=== PATIENT | female | born 2000 | race Hispanic/Latino ===

== ENCOUNTER 2020-01-05 06:09 | Emergency (ER) | payer OTHER ==
[2020-01-05] MEDS ORDERED: KETOROLAC 30 MG/ML INJ ONE (06:58)
--- NOTE | 2020-01-05 07:33 | ER ---
Nurse's Notes [facility] Name: Bhavana Washington Age: 19 yrs Sex: Female : 2000 Arrival Date: 01/05/2020 Time: 06:10 Bed 19 Private MD: Diagnosis: Radiculopathy, cervical region Presentation: 01/04 06:18 Chief complaint: Patient states: sudden left arm pain started this morning when I woke rr5 up. denies any trauma. Coronavirus screen: Client denies travel out of the [place] in the last 14 days. At this time, the client does not indicate any symptoms associated with coronavirus-19. Ebola Screen: Patient negative for fever greater than or equal to 101.5 degrees Fahrenheit, and additional compatible Ebola Virus Disease symptoms Patient denies exposure to infectious person. Patient denies travel to an Ebola-affected area in the 21 days before illness onset. Initial Sepsis Screen: Does the patient meet any 2 criteria? No. Patient's initial sepsis screen is negative. Does the patient have a suspected source of infection? No. Patient's initial sepsis screen is negative. Risk Assessment: Do you want to hurt yourself or someone else? Patient reports no desire to harm self or others. Onset of symptoms was January 05, 2020. 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 - Social history:: Smoking status: unknown Patient/guardian denies using alcohol, street drugs, tobacco products. Screenin:21 Abuse screen: Denies threats or abuse. Denies injuries from another. Nutritional rr5 screening: No deficits noted. Tuberculosis screening: No symptoms or risk factors identified. Fall Risk None identified. Total Gonzalez Fall Scale indicates No Risk (0-24 pts). Assessment: 06:18 General: Appears in no apparent distress. uncomfortable, Behavior is calm, cooperative, rr5 appropriate for age. Pain: Complains of pain in left arm Pain radiates to left arm Pain currently is 10 out of 10 on a pain scale. Quality of pain is described as aching, Pain began suddenly, Is continuous. Neuro: Level of Consciousness is awake, alert, obeys commands, Oriented to person, place, time, situation. Cardiovascular: Capillary refill < 3 seconds Patient's skin is warm and dry. Respiratory: Airway is patent Respiratory effort is even, unlabored, Respiratory pattern is regular, symmetrical. GI: No signs and/or symptoms were reported involving the gastrointestinal system. : No signs and/or symptoms were reported regarding the genitourinary system. EENT: No signs and/or symptoms were reported regarding the EENT system. Derm: Skin is intact, is healthy with good turgor, Skin temperature is warm. Musculoskeletal: Capillary refill Reports pain in left arm. 07:00 Reassessment: Patient and/or family updated on plan of care and expected duration. Pain mt2 level reassessed. Patient is alert, oriented x 3, equal unlabored respirations, skin warm/dry/pink. General: Appears in no apparent distress. Pain: Complains of pain in left arm Pain currently is 9 out of 10 on a pain scale. 07:32 Reassessment: Patient and/or family updated on plan of care and expected duration. Pain jr10 level reassessed. Patient is alert, oriented x 3, equal unlabored respirations, skin warm/dry/pink. Patient states feeling better. Patient states symptoms have improved. Vital Signs: 06:18 BP 124 / 80; Pulse 75; Resp 17; Temp 97.9; Pulse Ox 99% ; Weight 68.04 kg; Height 5 ft. rr5 4 in. (162.56 cm); Pain 10/10; 07:00 BP 121 / 61; Pulse 71; Resp 16; Pulse Ox 97% ; Pain 8/10; mt2 07:54 BP 103 / 77; Pulse 86; Resp 20; Pulse Ox 100% on R/A; Pain 0/10; jr10 06:18 Body Mass Index 25.75 (68.04 kg, 162.56 cm) rr5 ED Course: 06:11 Patient arrived in ED. cl3 06:20 Triage completed. rr5 06:20 Arm band placed on right wrist. rr5 06:21 Patient has correct armband on for positive identification. Bed in low position. Call rr5 light in reach. 06:28 Nad[facility] Vu[facility]-C [facility] snw 06:28 Jesus Lozada MD is Attending Physician. snw 06:28 Lucero Gibbs, RN is Primary Nurse. mt2 07:30 Eliana Rose, RN is Primary Nurse. jr10 07:55 No provider procedures requiring assistance completed. Patient did not have IV access jr10 during this emergency room visit. Administered Medications: 06:52 Drug: TORadol 60 mg Route: IM; Site: right gluteus; mt2 07:11 Follow up: Response: No adverse reaction mt2 07:31 Follow up: Response: No adverse reaction; Pain is decreased jr10 Outcome: 07:32 Discharge ordered by . snw 07:54 Discharged to home ambulatory. jr10 07:54 Condition: good 07:54 Discharge instructions given to patient, Instructed on discharge instructions, follow up and referral plans. Demonstrated understanding of instructions, follow-up care, medications, Prescriptions given X 2. 07:55 Patient left the ED. jr10 Signatures: Nadia Vuong FNP-C APPLICATION DEFENSE MANAGER-Csnw Cj Mccann, RN RN rr5 Mayuri Samuel cl3 Lucero Gibbs, RN RN mt2 Eliana Rose, RN RN jr10
--- NOTE | 2020-01-05 07:33 | EDPHYS ---
Physician Documentation [facility] Name: Bhavana Washington Age: 19 yrs Sex: Female : 2000 Arrival Date: 01/05/2020 Time: 06:10 Bed 19 Private MD: ED Physician Jesus Lozada HPI: 01/04 07:31 This 19 yrs old Female presents to ER via Ambulatory with complaints of Arm snw Problem. 07:31 The patient or guardian complains of pain, that is acute. The complaints affect the snw left tricep. Context: The problem was sustained at home, resulted from unknown cause. Onset: The symptoms/episode began/occurred on awakening. Associated signs and symptoms: The patient has no apparent associated signs or symptoms. Severity of symptoms: At their worst the symptoms were moderate. The patient has not experienced similar symptoms in the past. It is unknown whether or not the patient has recently seen a physician. last menses began 3 days ago. 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 - Social history:: Smoking status: unknown Patient/guardian denies using alcohol, street drugs, tobacco products. ROS: 07:30 Constitutional: Negative for fever, chills, and weight loss, Eyes: Negative for injury, snw pain, redness, and discharge, ENT: Negative for injury, pain, and discharge, Neck: Negative for injury, pain, and swelling, Cardiovascular: Negative for chest pain, palpitations, and edema, Respiratory: Negative for shortness of breath, cough, wheezing, and pleuritic chest pain, Abdomen/GI: Negative for abdominal pain, nausea, vomiting, diarrhea, and constipation, Back: Negative for injury and pain, : Negative for injury, bleeding, discharge, and swelling, Skin: Negative for injury, rash, and discoloration, Neuro: Negative for headache, weakness, numbness, tingling, and seizure, Psych: Negative for depression, anxiety, suicide ideation, homicidal ideation, and hallucinations. 07:30 MS/extremity: Positive for pain, of the left tricep. Exam: 07:29 Constitutional: This is a well developed, well nourished patient who is awake, alert, snw and in no acute distress. Head/Face: Normocephalic, atraumatic. Eyes: Pupils equal round and reactive to light, extra-ocular motions intact. Lids and lashes normal. Conjunctiva and sclera are non-icteric and not injected. Cornea within normal limits. Periorbital areas with no swelling, redness, or edema. ENT: Nares patent. No nasal discharge, no septal abnormalities noted. Tympanic membranes are normal and external auditory canals are clear. Oropharynx with no redness, swelling, or masses, exudates, or evidence of obstruction, uvula midline. Mucous membranes moist. Neck: Trachea midline, no thyromegaly or masses palpated, and no cervical lymphadenopathy. Supple, full range of motion without nuchal rigidity, or vertebral point tenderness. No Meningismus. + pain on awakening to left posterior upper arm Chest/axilla: Normal chest wall appearance and motion. Nontender with no deformity. No lesions are appreciated. Cardiovascular: Regular rate and rhythm with a normal S1 and S2. No gallops, murmurs, or rubs. Normal PMI, no JVD. No pulse deficits. Respiratory: Lungs have equal breath sounds bilaterally, clear to auscultation and percussion. No rales, rhonchi or wheezes noted. No increased work of breathing, no retractions or nasal flaring. Abdomen/GI: Soft, non-tender, with normal bowel sounds. No distension or tympany. No guarding or rebound. No evidence of tenderness throughout. Back: No spinal tenderness. No costovertebral tenderness. Full range of motion. Skin: Warm, dry with normal turgor. Normal color with no rashes, no lesions, and no evidence of cellulitis. Neuro: Awake and alert, GCS 15, oriented to person, place, time, and situation. Cranial nerves II-XII grossly intact. Motor strength 5/5 in all extremities. Sensory grossly intact. Cerebellar exam normal. Normal gait. Psych: Awake, alert, with orientation to person, place and time. Behavior, mood, and affect are within normal limits. 07:29 Musculoskeletal/extremity: Extremities: grossly normal except: noted in the left arm: tenderness, ROM: no acute changes, Circulation is intact in all extremities. Sensation intact. Vital Signs: 06:18 BP 124 / 80; Pulse 75; Resp 17; Temp 97.9; Pulse Ox 99% ; Weight 68.04 kg; Height 5 ft. rr5 4 in. (162.56 cm); Pain 10/10; 07:00 BP 121 / 61; Pulse 71; Resp 16; Pulse Ox 97% ; Pain 8/10; mt2 07:54 BP 103 / 77; Pulse 86; Resp 20; Pulse Ox 100% on R/A; Pain 0/10; jr10 06:18 Body Mass Index 25.75 (68.04 kg, 162.56 cm) rr5 MDM: 06:28 Patient medically screened. snw 07:33 Data reviewed: vital signs, nurses notes. Data interpreted: Pulse oximetry: on room air snw is 97 %. Interpretation: normal. Counseling: I had a detailed discussion with the patient and/or guardian regarding: the historical points, exam findings, and any diagnostic results supporting the discharge/admit diagnosis, the need for outpatient follow up, to return to the emergency department if symptoms worsen or persist or if there are any questions or concerns that arise at home. Special discussion: Based on the history and exam findings, there is no indication for further emergent testing or inpatient evaluation. I discussed with the patient/guardian the need to see the primary care provider for further evaluation of the symptoms. Administered Medications: 06:52 Drug: TORadol 60 mg Route: IM; Site: right gluteus; mt2 07:11 Follow up: Response: No adverse reaction mt2 07:31 Follow up: Response: No adverse reaction; Pain is decreased jr10 Disposition: 08:36 Co-signature as Attending Physician, Jesus Lozada MD I agree with the assessment and tw4 plan of care. Disposition: 01/05/20 07:32 Discharged to Home. Impression: Radiculopathy, cervical region. - Condition is Stable. - Discharge Instructions: Cervical Radiculopathy, Heat Therapy, Radicular Pain. - Prescriptions for Diclofenac Sodium 75 mg Oral Tablet Sustained Release - take 1 tablet by ORAL route 2 times per day; 30 tablet. orphenadrine citrate 100 mg Oral Tablet Sustained Release - take 1 tablet by ORAL route 2 times per day As needed; 20 tablet. - Medication Reconciliation Form, Thank You Letter, Antibiotic Education, Prescription Opioid Use form. - Follow up: Emergency Department; When: As needed; Reason: Worsening of condition. Follow up: Private Physician; When: 2 - 3 days; Reason: Recheck today's complaints, Continuance of care, Re-evaluation by your physician. Signatures: Nadia Vuong, POLICY CHECKER-C POLICY CHECKER-Csnw Jesus Lozada MD MD tw4 Cj Mccann, RN RN rr5 Lucero Gibbs RN RN mt2 Eliana Rose RN RN jr10 Corrections: (The following items were deleted from the chart) 07:55 07:32 01/05/2020 07:32 Discharged to Home. Impression: Radiculopathy, cervical region. jr10 Condition is Stable. Forms are Medication Reconciliation Form, Thank You Letter, Antibiotic Education, Prescription Opioid Use. Follow up: Emergency Department; When: As needed; Reason: Worsening of condition. Follow up: Private Physician; When: 2 - 3 days; Reason: Recheck today's complaints, Continuance of care, Re-evaluation by your physician. snw
[2020-01-05 08:03] VITALS: TEMP 97.9
[2020-01-05 08:06] VITALS: BP 103/77; O2SAT 100
== END 2020-01-05 07:55 | disposition home or self-care (01) ==
LOC: ER 06:09
DX: M54.12 Radiculopathy, cervical region (principal)
CPT/HCPCS: 96372; 99283